=== PATIENT | female | born 1945 | race Caucasian/White ===

== ENCOUNTER 2024-02-29 00:23 | Emergency (ER) | payer MEDICARE, BC, SELFPAY ==
[2024-02-29] VITALS (7 sets, daily range): BP systolic 131–139; BP diastolic 76–83; PULSE 64–132; RESP 18; TEMP 36.6; O2SAT 91–100; BMI 22.6
--- NOTE | 2024-02-29 01:00 | ED_ITS ---
HPI - General Adult General Chief complaint: Arrhythmia/Palpitations Stated complaint: Elevated heartrate Time Seen by Provider: 02/29/24 00:23 Source: patient Mode of arrival: ambulatory Limitations: no limitations History of Present Illness HPI narrative: 78-year-old female presents the emergency department with feeling of rapid heart rate about 90 minutes prior to arrival at 11:00 p.m. while at rest. Last meal 9:00 p.m.. No prior history of arrhythmia but does have a remote history of radiation for breast cancer 20 years ago. Has had an echo within the last couple of years with no significant signs of any major valvular or structural heart disease. Last ejection fraction 67% no prior coronary artery disease, stent placement or bypass surgery. She does follow with cardiology every few years as a result of her prior treatment. She is not having any chest pain or shortness of breath. No prodromal symptoms. No prior history of arrhythmias. She is familiar with discussion of them as her has had a history of cardioversion for what sounds like AFib in the past. No recent illness, fever, medication changes, injury or trauma. She is not anticoagulated. Did not try any interventions other than researching and watchful waiting prior to coming to the ED. no alcohol or drug use tonight. Past medical history notable for the prior breast cancer. She has history of hypertension and hyperlipidemia. Home medications are atorvastatin and hydrochlorothiazide. Allergy to penicillin causing hives. Nonsmoker. ROS is notable for a cardiac symptoms as above only, otherwise denies times 12 systems. Related Data Home Medications ?Medication ?Instructions ?Recorded ?Confirmed alprazolam 0.25 mg tablet 0.25 mg PO DAILY 02/29/24 02/29/24 hydrochlorothiazide 12.5 mg tablet 12.5 mg PO DAILY 02/29/24 02/29/24 rosuvastatin 10 mg tablet 10 mg PO DAILY 02/29/24 02/29/24 Previous Rx's ?Medication ?Instructions ?Recorded metoprolol tartrate 25 mg tablet 12.5 mg (1/2 x 25 mg) PO BID #90 02/29/24 tabs Allergies Allergy/AdvReac Type Severity Reaction Status Date / Time Penicillins Allergy Intermediate Hives Verified 02/29/24 00:28 Exam Const: Vital Signs, click to edit/add: Vital Signs - 24 hr 02/29/24 00:29 Temperature 97.9 F Pulse Rate [Pulse Oximeter] 132 H Respiratory Rate 18 Blood Pressure [[facility] Upper [facility]] 135/82 Pulse Oximetry 97 Oxygen Delivery Me thod Room Air Documenting provider has reviewed patient's vital signs: yes Common normals: no apparent distress and alert General appearance: cooperative and well kempt Other: Excellent historian HENMT: Common normals: normocephalic Head and scalp: normocephalic Face and sinus: normal facial exam Mouth: oral and palatal mucosa normal Eye: Common normals: conjunctivae normal General eye: normal appearance of both eyes Conjunctiva: conjunctiva(e) normal Neck & C-Spine: Common normals: no lymphadenopathy General: normal visual inspection Chest: Common normals: inspection of chest normal Resp: Common normals: normal respiratory effort, no use of accessory muscles and clear to auscultation bilaterally Effort & inspection: able to speak in c omplete sentences Auscultation: clear to auscultation bilaterally Cardio: Common normals: S1 normal heart sound, S2 normal heart sound and no murmurs Heart sounds: S1 normal and S2 normal Other: Tachycardic around 130 but sounded regular. GI: Common normals: Normal to inspection, nondistended, normoactive bowel sounds present, soft to palpation and no hepatosplenomegaly Palpation: soft and no hepatosplenomegaly Back & Pelvis: Common normals: thoracic and lumbar spine normal to inspection Extremity: Common normals: normal to inspection and no pedal edema Neuro: Sensorium/orientation: alert Speech: speech normal Motor exam: no movement abnormalities noted Psych: Appearance: well kempt Attitude: engaged Activity/motor behavior: appropriate eye contact Insight: insight good Judgement: judgment good Skin: Common normals: no rashes or lesions noted General skin exam: no rashes or lesions noted Course Course ED Course: EKG obtained, clearly showing atrial flutter in a 2:1 pattern. No hypotension, hypoxia, signs of chest pain or dyspnea. Differential diagnosis mainly for arrhythmias and various causes of such. No significant clinical suspicion for accompanying coronary artery disease, electrolyte abnormality, heart failure or infectious cause. Patient is able to pull up her most recent echo from her [facility] chart and I reviewed this. EF 67%, no significant signs of any structural or valvular major heart disease. Very reassuring. Counseled patient on diagnosis. Would recommend that we place peripheral IV, obtain some basic labs to look for heart failure, electrolyte abnormalities, dar al function, anemia. I suspect these will be normal. Will start 0.5 L of normal saline, 10 mg of diltiazem, 1 g of magnesium and see if this allows for cardioversion. Last meal was 9:00 p.m., would be a candidate for cardioversion at 3:00 a.m. if initial IV measures are unsuccessful. Counseled patient briefly on this as well. Also discussed that she will likely need a plan for long-term management even if we are successful today and we may need additional input from Cardiology for management today. Reevaluation(s) Time of Reevaluation #1: 02:00 Reevaluation #1: Patient appeared to cardioverted around 1:35. I stopped at 1:45 a.m. to reassess. She is feeling better. We then spent a significant time discussing atrial flutter, stroke risk, long-term management, need to check in with her harness and bag inspector in the daylight hours. Will start metoprolol 12 and half p.o. b.i.d.. Based on her chads score, age over 75 being her only real risk factor, I recommend that we start low-dose aspirin. Her harness and bag inspector may defer to stronger anticoagulation and I would trust their judgment. They have more in- depth knowledge of her cardiac issues then I have access to. Counseled that she may benefit from a fitness tracker that has an arrhythmia detector. She is planning to take to grand children on a camping trip starting tomorrow. I recommended that she use caution while hiking. She is warned that if she starting feel dizzy, lightheaded or short of breath she needs to sit down right away, even if it is in the middle of a trail. She should more less take it easy until she is more use to the medication. We discussed pill in the pocket and how she may take an extra 12.5 mg, up to a total of 25 mg per dose if she has repeat onset of atrial flutter. She is return to the ED if it has not been effective in 2 hours or if at any point if she has worrisome symptoms like chest pain, severe shortness of breath, etc.. She verbalizes understanding and agreement. No further questions. She will contact her harness and bag inspector with the information given specifically in her discharge summary. Vital Signs Vital signs: Initial Vital Signs Temperature 97.9 F 02/29/24 00:29 Temperature Source Temporal Artery Scan 02/29/24 00:29 Pulse Rate 132 H 02/29/24 00:29 Respiratory Rate 18 02/29/24 00:29 Blood Pressure 135/82 02/29/24 00:29 Blood Pressure Mean 99 02/29/24 00:29 Blood Pressure Position Sitting 02/29/24 00:29 Pulse Oximetry 97 02/29/24 00:29 Oxygen Delivery Method Room Air 02/29/24 00:29 Vital Signs Temperature 97.9 F 02/29/24 00:29 Pulse Rate 132 H 02/29/24 00:29 Respiratory Rate 18 02/29/24 00:29 Blood Pressure 135/82 02/29/24 00:29 Pulse Oximetry 97 02/29/24 00:29 Oxygen Delivery Method Room Air 02/29/24 00:29 Temperature 97.9 F 02/29/24 00:29 Pulse Rate 132 H 02/29/24 00:29 Respiratory Rate 18 02/29/24 00:29 Blood Pressure 135/82 02/29/24 00:29 Pulse Oximetry 97 02/29/24 00:29 Oxygen Delivery Method Room Air 02/29/24 00:29 Medications Administered Medications: Generic Name Dose Route Start Last Admin Trade Name Leiq PRN Reason Stop Dose Admin Aspirin 162 mg 02/29/24 01:59 02/29/24 02:07 Aspirin 81 Mg Tab.Chew PO 02/29/24 02:00 162 mg ONCE ONE Administration Diltiazem HCl 10 mg 02/29/24 00:58 02/29/24 01:27 Diltiazem 5 Mg/Ml Inj IVP 02/29/24 00:59 10 mg ONCE ONE Administration Sodium Chloride 500 mls @ 500 mls/hr 02/29/24 00:58 02/29/24 01:24 0.9 % Sodium Chloride 500 Ml IV 02/29/24 01:57 500 mls/hr .Q1H ONE Administration Magnesium Sulfate/Dextrose 1 gm in 100 mls @ 100 mls/hr 02/29/24 00:59 02/29/24 01:27 Magnesium Sulf 1 G/100 Ml-D5w IVPB 02/29/24 01:58 100 mls/hr ONCE ONE Administration Metoprolol Tartrate 12.5 mg 02/29/24 01:59 02/29/24 02:07 Metoprolol Tartrate 25 Mg Tablet PO 02/29/24 02:00 12.5 mg ONCE ONE Administration Medical Decision Making Lab Data Lab results reviewed: Yes I reviewed the patient's lab results Lab results narrative: Very reassuring, as expected Labs: Lab Results 02/29/24 02/29/24 Range/Units 00:48 00:58 WBC 7.64 (4.50-11.00) K/uL RBC 4.48 (4.00-5.20) m/uL Hgb 13.7 (12.0-16.0) gm/dL Hct 41.4 (33.0-51.0) % MCV 92 (80-100) fL MCH 31 (26-34) pg MCHC 33 (32-36) gm/dL RDW Coeff of Aditya 12.6 (11.5-15.5) % Plt Count 284 (140-440) K/uL Neut % (Auto) 43.9 (42.0-72.0) % Lymph % (Auto) 39.7 (20-44) % Falls % (Auto) 9.6 (0.0-11.0) % Eos % (Auto) 5.9 (0.0-7.0) % Baso % (Auto) 0.8 (0.0-3.0) % Neut # (Auto) 3.36 (1.7-7.0) K/uL Lymph # (Auto) 3.03 H (0.90-2.90) K/uL Falls # (Auto) 0.70 (0.00-0.90) K/UL Eos # (Auto) 0.45 (0.00-0.50) K/uL Baso # (Auto) 0.06 (0.00-0.30) K/uL Abs Immat Gran (auto) 0.01 (0.00-0.30) K/uL Imm/Tot Granulo (auto) 0.1 % INR 0.91 (0.91-1.10) Sodium 141 (135-149) mmol/L Potassium 3.6 (3.6-5.1) mmol/L Chloride 108 (96-114) mmol/L Carbon Dioxide 23 (20-32) mmol/L Anion Gap 10 (7-15) mEq/L BUN 24 (7-30) mg/dL Creatinine 0.7 (0.5-1.5) mg/dL Estimated Creat Clear 43.40 Estimated GFR 88 ml/min Glucose 105 (60-115) mg/dL Calcium 10.3 (8.4-10.6) mg/dL Magnesium 2.2 (1.5-2.6) mg/dL NT-Pro-B Natriuret Pep 158 pg/mL POC Troponin I 0.00 L (0.01-0.04) ng/ml ECG Data Attestation: I personally reviewed and interpreted this ECG as follows: Prior ECG tracings: not available for review Interpretation: Atrial flutter with a 2-1 conduction, rate 132. Saw tooth pattern with ST abnormalities difficult to interpret in the setting of atrial flutter. No prior comparison. Repeat EKG at 1:51 a.m. showing normal sinus rhythm with no significant ST or T- wave abnormalities, rate of 66 with normal intervals and axis. Discharge Plan Discharge Clinical Impression: Atrial flutter Patient Disposition: Home w/ Parent or Adult Condition: Improved Instructions: Atrial Flutter (DC) Additional Instructions: As we discussed, you had an episode of atrial flutter, a common arrhythmia which is an electrical abnormality in the heart. This is a common part of aging for women but you likely also had some very minor damage to the structure of your heart from your prior radiation that would not have been detected by echo or any blood tests. The important thing to know that once you have this abnormal heart rhythm, you do have a dramatically higher risk of it happening again. You also have a 6 fooled increased risk of stroke compared to the average person. Most of our treatment will focus on stroke prevention. Because of this, I have the following recommendations for you. Please call your harness and bag inspector in the daylight hours and let him know the following news: You were seen in the emergency department for an episode of atrial fibrillation. You received a single dose of diltiazem and converted within 15 minutes. There were no other abnormalities in your blood work. Your EKG return to normal sinus rhythm with no unusual electrical features after the medication and spontaneous cardioversion. We have started you on metoprolol 12.5 mg twice daily. Because you are over the age of 75, I am also recommending that you start taking an aspirin daily. There is some discrepancy on whether this toe should be 81 mg, 162 mg or a full aspirin. I have elected to start you on 162 mg but your harness and bag inspector may choose a different dose for you or a completely different anticoagulation plan based on his more in-depth knowledge of your conditions. Since her echo is less than 3-month-old, I would not recommend repeating this. I would not recommend a Holter monitor at this time but your harness and bag inspector may want 1. We did discuss fitness monitor such as an Apple watch which may be useful for you in tracking abnormal heart rhythms. We also discussed a pill in the pocket concept. If you have onset of atrial flutter again, you may take an additional dose of your metoprolol, 12.5 mg x1. You may take a total of up to 25 mg at a time if you happen to be almost due for your regular dose anyway. If this has not helped in 2 hours, you should come to the emergency department. He should come to the emergency department sooner if you are feeling significant chest pain, dizziness, severe shortness of breath or other alarming symptoms. Please remember on this upcoming camping trip that if you start to feel dizzy, short of breath or lightheaded because of the new medication, it is important that you sit down in place, even on the trail until the symptoms pass. Drink plenty of water and take frequent breaks until you are more used to the medication. Activity Level: No Restrictions Discharge Diet: Regular Prescriptions: New metoprolol tartrate 25 mg tablet 12.5 mg PO BID Qty: 90 4RF No Action alprazolam 0.25 mg tablet 0.25 mg PO DAILY rosuvastatin 10 mg tablet 10 mg PO DAILY hydrochlorothiazide 12.5 mg tablet 12.5 mg PO DAILY Stand Alone Forms: I-frontdesk Info Instructions
[2024-02-29 01:08] LABS: Basophils Absolute Auto 0.06 K/uL (0.00-0.30); Basophils Percent Auto 0.8 % (0.0-3.0); Eosinophils Absolute Auto 0.45 K/uL (0.00-0.50); Eosinophils Percent Auto 5.9 % (0.0-7.0); Hematocrit 41.4 % (33.0-51.0); Hemoglobin* 13.7 gm/dL (12.0-16.0); Immature Granulocytes Abs Auto 0.01 K/uL (0.00-0.30); Immature Granulocytes Pct Auto 0.1 %; Lymphocytes Absolute Auto 3.03 K/uL (0.90-2.90); Lymphocytes Percent Auto 39.7 % (20-44); Mean Corpuscular HGB Conc 33 gm/dL (32-36); Mean Corpuscular Hemoglobin 31 pg (26-34); Mean Corpuscular Volume 92 fL (80-100); Monocytes Percent Auto 9.6 % (0.0-11.0); Neutrophils Absolute Auto 3.36 K/uL (1.7-7.0); Neutrophils Percent Auto 43.9 % (42.0-72.0); Platelet Count* 284 K/uL (140-440); RDW Coefficient of Variation % 12.6 % (11.5-15.5); Red Blood Count 4.48 m/uL (4.00-5.20); White Blood Count* 7.64 K/uL (4.50-11.00)
[2024-02-29 01:11] LABS: Slide Review Reflex No
[2024-02-29 01:15] LABS: Chloride* 108 mmol/L (96-114)
[2024-02-29 01:16] LABS: Potassium* 3.6 mmol/L (3.6-5.1); Sodium* 141 mmol/L (135-149)
[2024-02-29 01:18] LABS: Anion Gap 10 mEq/L (7-15); Carbon Dioxide* 23 mmol/L (20-32); Creatinine* 0.7 mg/dL (0.5-1.5); Estimated Glomerular Filt Rate 88 ml/min
[2024-02-29 01:19] LABS: Blood Urea Nitrogen* 24 mg/dL (7-30); Calcium* 10.3 mg/dL (8.4-10.6); Glucose* 105 mg/dL (60-115); INR 0.91 (0.91-1.10); Magnesium* 2.2 mg/dL (1.5-2.6); Prothrombin Time 12.8 Seconds
--- OUTSIDE RECORDS SUMMARY | 2024-02-29 01:19 | XMS_ITS | Encounter Summary ---
Author Organization [facility] Address [address] [place] [address] Care Team Providers Care Software Developer Name Role Phone Shreyas bAreu M.D. Primary Care Provider [phone] [phone] Encounter Details Date Type Department Care Team (Late Contact Info) Description 02/08/2017 Historical Ophthalmology [facility] Klever Solano Jr., M.D. [address] [place] [id number] Social History Tobacco Use Types Packs/Day Years Used Date Smoking Tobacco: Never Sex and Gender Information Value Date Recorded Sex Assigned at Female 04/20/2021 3:08 PM CDT Gender Identity Female 01/31/2018 12:32 PM CDT Sexual Orientation Straight 01/31/2018 12 :32 PM CDT documented as of this encounter Progress Notes * Klever Solano M.D. - 02/08/2017 1:47 PM CDT Contact Lens Exam IMPRESSION / REPORT / PLAN #1 Reorder, basilio if possible, the lenses with the OR OU. Please let lab know that position is OK, but on blink lens rotates a small amount and not wetting real well. CD Reports - EYECL Id: [id number] Status: Fnl documented in this encounter Plan of Treatment Upcoming Encounters Date Type Department Care Team (Late Contact Info) Description 04/05/2024 10:20 AM CDT Appointment Department of Laboratory Medicine in [place] [address] [place] [address] Shreyas Abreu M.D. [address] [place] [address] 04/09/2024 9:30 AM CDT Comprehensive Visit Department of Family Medicine, [facility], in [place], [place] [address], [place] [address] Shreyas Abreu M.D. [address] [phone] 04/09/2024 10:45 AM CDT Appointment Department of Radiology in [place], [place] [address] [place] [address] Shreyas Abreu M.D. [address] [phone] documented as of this encounter Visit Diagnoses Not on filedocumented in this encounter Additional Health Concerns Infection Onset Date Last Indicated Resolved Time COVID19 Pending 02/19/2021 02/20/2021 02/20/2021 1 0:03 PM CDT COVID19 02/28/2022 02/28/2022 03/20/2022 4:45 AM CDT documented as of this encounter Care Teams Software Developer Relationship Specialty Start Date End Date Shreyas Abreu M.D. [address] [place] [address] PCP - General 12/16/16 documented as of this encounter
--- OUTSIDE RECORDS SUMMARY | 2024-02-29 01:19 | XMS_ITS | Encounter Summary ---
Author Organization [facility] Address [address] [place] [address] Care Team Providers Care Inspector [employer] Products Name Role Phone Shreyas Abreu M.D. Primary Care Provider [phone] [phone] Encounter Details Date Type Department Care Team (Late Contact Info) Description 12/29/2015 Historical Ophthalmology [facility] Klever Solano Jr., M.D. [address] [place] [phone] Social History Tobacco Use Types Packs/Day Years Used Date Smoking Tobacco: Never Assessed Sex and Gender Information Value Date Recorded Sex Assigned at Female 04/20/2021 3:08 PM CDT Gender Identity Female 01/31/2018 12:32 PM CDT Sexual Orientation Straight 01/31/2018 12 :32 PM CDT documented as of this encounter Progress Notes * Klever Solano M.D. - 12/29/2015 10:38 AM CDT Contact Lens Exam HISTORY OF PRESENT ILLNESS by the end of the day her left lens is foggy IMPRESSION / REPORT / PLAN Fit well, center well, but lots of deposits. Reorder same lenses. CDM Reports - EYECL Id: [id number] Status: Fnl documented in this encounter Plan of Treatment Upcoming Encounters Date Type Department Care Team (Late Contact Info) Description 04/05/2024 10:20 AM CDT Appointment Department of Laboratory Medicine in [place] [address] [place] [address] Shreyas Abreu M.D. [address] [place] [address] 04/09/2024 9:30 AM CDT Comprehensive Visit Department of Family Medicine, [facility], in [place], [place] [address] [address] Shreyas Abreu M.D. [address] [address] 04/09/2024 10:45 AM CDT Appointment Department of Radiology in [place], [place] [address] [address] Shreyas Abreu M.D. [address] [place] [address] documented as of this encounter Visit Diagnoses Not on filedocumented in this encounter Additional Health Concerns Infection Onset Date Last Indicated Resolved Time COVID19 Pending 02/19/2021 02/20/2021 02/20/2021 1 0:03 PM CDT COVID19 02/28/2022 02/28/2022 03/20/2022 4:45 AM CDT documented as of this encounter Care Teams Inspector Canvas Products Relationship Specialty Start Date End Date Shreyas Abreu M.D. [address] [place] [address] PCP - General 12/16/16 documented as of this encounter
--- OUTSIDE RECORDS SUMMARY | 2024-02-29 01:19 | XMS_ITS | Encounter Summary ---
Author Organization [facility] Address [address] [place] [address] Care Team Providers Care Fire Captain Marine Name Role Phone Shreyas Abreu M.D. Primary Care Provider [phone] Reason for Visit * Reason Onset Date Comments Communication 02/14/2024 F/u from appt on 02/13/24 Encounter Details Date Type Department Care Team (Latest Contact Info) Description 02/14/2024 Clinical Communication Department of Ophthalmology in [place], [place] [address] [phone] Klever Solano Jr., M.D. [address] [address] Communication (F/u from appt on 02/13/24) Social History Tobacco Use Types Packs/Day Years Used Date Smoking Tobacco: Never Passive Smoke Exposure: Never Smokeless Tobacco: Never Alcohol Use Standard Drinks/Week Comments Yes 0 (1 standard drink = 0.6 oz pur e alcohol) Rare (1) Humiliation, Afraid, Rape, and Kick questionnair e Answer Date Recorded Fear of Current or Ex-Partner No Emotionally Abused No 01/31/2019 Physically Abused No 01/31/2019 Sexually Abused No 01/31/2019 Social Connection and Isolat ion Panel [NHANES] Answer Date Recorded In a typical week, how many times do you talk on the phone with family, friends, or neighbors? More than three times a week 11/04/2020 How often do you get togethe r with friends or relatives? More than three times a week 11/04/2020 How often do you attend chur ch or christianity services? More than 4 times per year 11/04/2020 Do you belong to any clubs o r organizations such as episcopal groups, unions, fraternal or athletic groups, or school groups? Yes 11/04/2020 How often do you attend meet ings of the clubs or organizations you belong to? More than 4 times per year 11/04/2020 Are you , , di vorced, , never , or living with a partner? 11/04/2020 AUDIT-C Answer Date Recorded Q1: How often do you have a drink containing alc ohol? Monthly or less 11/04/2020 Q2: How many drinks containi ng alcohol do you have on a typical day when you are drinking? 1 or 2 11/04/2020 Q3: How often do you have si x or more drinks on one occasion? Never 11/04/2020 Overall Financial Resource Strain (CARDIA) Answe r Date Recorded How hard is it for you to pa y for the very basics like food, housing, medical care, and heating? Not hard at all 04/03/2023 PHQ-2 Answer Date Recorded PHQ-2 Score 0 04/03/2023 [facility] - Occupational Stress Questionnaire Answer Date Recorded Do you feel stress - tense, restless, nervous, or anxious, or unable to sleep at night because your mind is troubled all the time - these days? Not at all 11/04/2020 Exercise Vital Sign Answer Date Recorde d On average, how many days pe r week do you engage in moderate to strenuous exercise (like a brisk walk)? 5 days 04/03/2023 On average, how many minutes do you engage in exercise at this level? 60 min 04/03/2023 Hunger Vital Sign Answer Date Recorded Within the past 12 months, y ou worried that your food would run out before you got the money to buy more. Never true 04/03/20 23 Within the past 12 months, t he food you bought just didn't last and you didn't have money to get more. Never true 04/03/2023 PRAPARE - Transportation Answer Date Re corded In the past 12 months, has l ack of transportation kept you from medical appointments or from getting medications? No 07/2022 In the past 12 months, has l ack of transportation kept you from meetings, work, or from getting things needed for daily living? No 04/03/2023 Nutrition Answer Date Recorded On average, how many serving s of fruits and vegetables do you eat per day (serving size is equal to 1 cup or approximately the size of a tennis ball)? 3-5 04/03/2023 Dental Answer Date Recorded Dental: Regular Dentist Unknown 11/15/19 Employment Answer Date Recorded Employment status Retired 04/03/2023 Housing Stability Answer Date Recorded What is your living situation today? I have a [facility] place to live 04/03/2023 Education Answer Date Recorded What is the highest level of school you have completed or the highest degree you have received? Associate degree: academic program 11/04/2020 Sex and Gender Information Value Date Recorded Sex Assigned at Female 04/20/2021 3:08 PM CDT Gender Identity Female 01/31/2018 12:32 PM CDT Sexual Orientation Straight 01/31/2018 12 :32 PM CDT documented as of this encounter Plan of Treatment Upcoming Encounters Date Type Department Care Team (Late st Contact Info) Description 04/05/2024 10:20 AM CDT Appointment Department of Laboratory Medicine in [place] [address] [place] [address] Shreyas Abreu M.D. [address], [place] [address] 04/09/2024 9:30 AM CDT Comprehensive Visit Department of Family Medicine, [facility], in [place], [place] [address] [address] Shreyas Abreu M.D. [address], [place] [address] 04/09/2024 10:45 AM CDT Appointment Department of Radiology in [place], [place] [address] [phone] Shreyas Abreu M.D. [address] [facility] [place] [address] documented as of this encounter Visit Diagnoses Not on filedocumented in this encounter Care Teams Fire Captain Marine Relationship Specialty Start Date End Date Shreyas Abreu M.D. [address] [facility] [place] [address] PCP - General 12/16/16 documented as of this encounter
--- OUTSIDE RECORDS SUMMARY | 2024-02-29 01:19 | XMS_ITS | Encounter Summary ---
Author Organization [facility] Address [address] [place] [address] Care Team Providers Care Bellows Assembler Name Role Phone Shreyas Abreu M.D. Primary Care Provider [phone] [phone] Encounter Details Date Type Department Care Team (Late st Contact Info) Description 03/25/2017 Historical Ophthalmology [facility] Klever Solano Jr., M.D. [address] [place] [phone] Social History Tobacco Use Types Packs/Day Years Used Date Smoking Tobacco: Never Sex and Gender Information Value Date Recorded Sex Assigned at Female 04/20/2021 3:08 PM CDT Gender Identity Female 01/31/2018 12:32 PM CDT Sexual Orientation Straight 01/31/2018 12 :32 PM CDT documented as of this encounter Progress Notes * Klever Solano M.D. - 03/25/2017 8:38 AM CDT Contact Lens Exam IMPRESSION / REPORT / PLAN #1 Bitoric contact lens Does not like lack of intermediate. Call lab. Need to tighten OS, lots of rotation. CDM Reports - EYECL Id: [id number] Status: Fnl documented in this encounter Plan of Treatment Upcoming Encounters Date Type Department Care Team (Late Contact Info) Description 04/05/2024 10:20 AM CDT Appointment Department of Laboratory Medicine in [address] [place] [address] Shreyas Abreu M.D. [address], [place] [address] 04/09/2024 9:30 AM CDT Comprehensive Visit Department of Family Medicine, [facility], in [place], [place] [address] [place] [address] Shreyas Abreu M.D. [address] [place] [address] 04/09/2024 10:45 AM CDT Appointment Department of Radiology in [place], [place] [address] [place] [address] Shreyas Abreu M.D. [address] [place] [address] documented as of this encounter Visit Diagnoses Not on filedocumented in this encounter Additional Health Concerns Infection Onset Date Last Indicated Resolved Time COVID19 Pending 02/19/2021 02/20/2021 02/20/2021 1 0:03 PM CDT COVID19 02/28/2022 02/28/2022 03/20/2022 4:45 AM CDT documented as of this encounter Care Teams Bellows Assembler Relationship Specialty Start Date End Date Shreyas Abreu M.D. [address], [place] [address] PCP - General 12/16/16 documented as of this encounter
--- OUTSIDE RECORDS SUMMARY | 2024-02-29 01:19 | XMS_ITS | Encounter Summary ---
Author Organization [facility] Address [address] [place] [address] Care Team Providers Care Insurance Executive Name Role Phone Shreyas Abreu M.D. Primary Care Provider +1 [phone] Reason for Referral * Cardiovascular-Diagnostic (Routine) - Closed Specialty Diagnoses / Procedures Referred By Sarah chau Referred To Contact Diagnoses Regurgitation Aortic Procedures Echo Transthoracic (TTE) Live Ramirez M.D. [address] [place] [address] [facility] Region Referral ID Status Reason Start Date Expiration Date Visits Re quested Visits Authorized [id number] Closed 11/16/2023 11/15/2024 1 1 Reason for Visit * Cardiovascular-Diagnostic (Routine) - Closed Specialty Diagnoses / Procedures Referred By Sarah chau Referred To Contact Diagnoses Regurgitation Aortic Procedures Echo Transthoracic (TTE) Live Ramirez M.D. [address] [place] [address] [facility] Region Referral ID Status Reason Start Date Expiration Date Visits Re quested Visits Authorized [id number] Closed 11/16/2023 11/15/2024 1 1 Encounter Details Date Type Department Care Team (Latest Contact Info) Description 12/21/2023 12:01 PM CDT - 12/21/2023 11:59 PM CDT Hospital Encounter Department of Cardiovascular Diseases in [place], [place] [address] [facility] [place] [phone] Live Ramirez M.D. [address] [facility] [place] [phone] Regurgitation Aortic Discharge Disposition: Home or Self Care Social History Tobacco Use Types Packs/Day Years [...] often do you attend chur ch or buddhist services? More than 4 times per year 11/04/2020 Do you belong to any clubs o r organizations such as spiritism groups, unions, fraternal or athletic groups, or [...] Answer Date Recorded PHQ-2 Score 0 04/03/2023 [employer] [place] of Occupat ional Health - Occupational Stress [...] Date Recorded Dental: Regular Dentist Unknown 11/15/19 24 Employment Answer Date Recorded Employment status Retired 04/03/2023 Housing Stability Answer Date Recorded What is your living situation today? I have a [facility] place to live 04/03/2023 Education Answer Date [...] PM CDT documented as of this encounter Medications at Time of Discharge Medication Sig Dispensed Refills Start Date End Date ALPRAZolam (XANAX) 0.25 mg tabletIndications:Adjust ment Disorder With Anxious Mood Take 1/2 to 1 tab by mouth as needed for flying or occasionally for sleep. 15 tablet 1 04/07/2023 calcium carb-vitamin D3-vit K2 500 mg calcium- 200 unit-90 mcg tablet Take 1 tablet by mouth daily. cholecalciferol (for_VITAMIN D3) 2,000 Unit tablet Take 2 tablets by mouth daily. 12/26/2015 DOCOSAHEXANOIC ACID/EPA (FISH OIL ORAL) Take 1 capsule by mouth daily. GLUCOSAMINE/CHONDROITIN SULF A (GLUCOSAMINE-CHONDROITIN ORAL) Take 1 tablet by mouth daily. hydroCHLOROthiazide (HYDRODIURIL) 12.5 mg tabletIndications:Hypert ension Essential Primary Take 1 tablet (12.5 mg total) by mouth daily. 90 tablet 4 04/07/2023 04/06/2024 multivitamin tablet Take 1 tablet by mouth daily. pantoprazole (PROTONIX) 40 mg EC tabletIndications:Gastro esophageal Reflux Disease Take 1 tablet (40 mg total) by mouth daily as needed for heartburn. 30 tablet 3 04/07/2023 04/06/2024 rosuvastatin (CRESTOR) 10 mg tablet Take 1 tablet (10 mg total) by mouth daily. 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 Apply to perineal region. 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 4 tablet 3 04/07/2023 documented as of this encounter Plan of Treatment Upcoming Encounters Date Type Department Care Team (Late st Contact Info) Description 04/05/2024 10:20 AM CDT Appointment Department of Laboratory Medicine in [address] [place] [phone] Shreyas Abreu M.D. [address] [place] [address] 04/09/2024 9:30 AM CDT Comprehensive Visit Department of Family Medicine, [facility], in [place], [place] [address] [place] [address] Shreyas Abreu M.D. [address] [place] [address] 04/09/2024 10:45 AM CDT Appointment Department of Radiology in [place], [place] [address] [place] [address] Shreyas Abreu M.D. [address] [place] [address] documented as of this encounter Procedures Procedure Name Priority Date/Time Associated Diagnosis Comments (TTE) 2D ECHO DOPPLER COLOR Routine 12/21/2023 12:46 PM CDT Regurgitation Aortic documented in this encounter Results * (TTE) 2D ECHO DOPPLER COLOR (12/21/2023 12:46 PM CDT) Ejection Fraction 67 MC CV EIMS Mid-Ascending Aorta 36 MC CV EIMS LV Mass Index 85 MC CV EIMS LV End-Diastolic Diameter 46 MC CV EIMS LV End-Systolic Diameter 28 MC CV EIMS MV E Velocity 0.4 MC CV EIMS MV A Velocity 0.7 MC CV EIMS MV E/A 0.57 MC CV EIMS MV e' Velocity Medial 0.06 MC CV EIMS MV e' Velocity Lateral 0.08 MC CV EIMS MV E/e' Medial 6.7 MC CV EIMS MV E/e' Lateral 5 MC CV EIMS Left ventricular stroke volume index 49 MC CV EIMS Cardiac Output 4.83 MC CV EIMS Cardiac Index 2.79 MC CV EIMS LV Interventricular Septal Wall Thickness 9 MC CV EIMS LV Posterior Wall Thickness 10 MC CV EIMS LV Relative Wall Thickness 43 MC CV EIMS TAPSE 26 MC CV EIMS Tricuspid Annular S? 0.11 MC CV EIMS TR Vmax 2.74 MC CV EIMS RA Pressure 5 MC CV EIMS RV Systolic Pressure 35 MC CV EIMS AV mean gradient 4 MC CV EIMS Aortic valve area 2.92 MC CV EIMS Aortic Valve Dimensionless Index 0.77 MC CV EIMS LA Volume Index 26 MC CV EIMS Aortic Valve Systolic Peak Velocity 1.4 MC CV EIMS Anatomical Region Laterality Modality Echocardiography 12/21/2023 12:0 3 PM CDT Impressions 12/21/2023 1:54 PM CDT Transthoracic outreach echo interpretation. LEFT VENTRICLE:Normal left ventricular chamber size. Abnormal left ventricular geometry with ??concentric remodeling (increased wall thickness to cavity ratio). Calculated 2-D monoplane volumetric left ventricular ejection fraction 67%. No regional wall motion abnormalities. Grade 1/3 left ventricular diastolic dysfunction, consistent with low to normal left ventricular filling pressure. RIGHT VENTRICLE:Mildly enlarged right ventricular chamber size. Normal right ventricular systolic function. Estimated right ventricular systolic pressure 35 mmHg (right atrial pressure of 5 mmHg). ATRIA:Normal left atrial size. Left atrial volume index 26 ml/m2. Normal right atrial size. CARDIAC VALVES:Trileaflet aortic valve. Thickened aortic valve. Mild aortic valve regurgitation. Thickened mitral valve. Trivial mitral valve regurgitation. Normal pulmonary valve. Trivial pulmonary valve regurgitation. Normal tricuspid valve. Mild tricuspid valve regurgitation. OTHER ECHO FINDINGS:Normal inferior vena cava size with normal inspiratory collapse (>50%). Normal mid ascending aorta diameter of 36 mm. Abdominal aorta incompletely visualized. Normal abdominal aorta Doppler flow pattern. No atrial level shunt by color flow imaging. No intracardiac mass or thrombus, but the left atrial appendage cannot be visualized adequately with transthoracic echo to exclude thrombus in this location. No ??pericardial effusion. For the complete report, see the Order-Level Documents. Narrative 12/21/2023 1:54 PM CDT For the complete report, see the Order-Level Documents. Hemodynamics Heart Rate: 57 BPM Blood Pressure: 131 / 71 mmHg ECG: Sinus rhythm Final Impressions 1. Transthoracic outreach echo interpretation. 2. Mildly enlarged right ventricular chamber size, normal systolic function, estimated right ventricular systolic pressure 35 mmHg (right atrial pressure of 5 mmHg). 3. Trileaflet aortic valve. Mild aortic regurgitation. ??No aortic root dilatation. 4. Normal left ventricular chamber size, no regional wall motion abnormalities, calculated 2-D monoplane volumetric ejection fraction 67%. 5. Abnormal left ventricular geometry with ??concentric remodeling (increased wall thickness to cavity ratio), grade 1/3 diastolic dysfunction, consistent with low to normal filling pressure. 6. No ??pericardial effusion. 7. Normal inferior vena cava size with normal inspiratory collapse (>50%) , suggesting normal right atrial pressure. 8. Compared to the report of 04/01/2021 the following changes have occurred: the right ventricle is mildly increased in size but this may be due to the fact that it was better visualized in the current study. ??Side by side comparison of images performed. Procedure Note Live Ramirez M.D. - 12/21/2023 For the complete report, see the Order-Level Documents. Hemodynamics Heart Rate: 57 BPM Blood Pressure: 131 / 71 mmHg ECG: Sinus rhythm Final Impressions 1. Transthoracic outreach echo interpretation. 2. Mildly enlarged right ventricular chamber size, normal systolicfunction, estimated right ventricular systolic pressure 35 mmHg (rightatrial pressure of 5 mmHg). 3. Trileaflet aortic valve. Mild aortic regurgitation. No aortic rootdilatation. 4. Normal left ventricular chamber size, no regional wall motionabnormalities, calculated 2-D monoplane volumetric ejection buofhsrx27%. 5. Abnormal left ventricular geometry with concentric remodeling(increased wall thickness to cavity ratio), grade 1/3 diastolicdysfunction, consistent with low to normal filling pressure. 6. No pericardial effusion. 7. Normal inferior vena cava size with normal inspiratory collapse (>50%), suggesting normal right atrial pressure. 8. Compared to the report of 04/01/2021 the following changes haveoccurred: the right ventricle is mildly increased in size but this may bedue to the fact that it was better visualized in the current study. Sideby side comparison of images performed. Findings Transthoracic outreach echo interpretation. LEFT VENTRICLE:Normal left ventricular chamber size. Abnormal leftventricular geometry with concentric remodeling (increased wall thicknessto cavity ratio). Calculated 2-D monoplane volumetric left ventricularejection fraction 67%. No regional wall motion abnormalities. Grade 1/3left ventricular diastolic dysfunction, consistent with low to normal leftventricular filling pressure. RIGHT VENTRICLE:Mildly enlarged right ventricular chamber size. Normalright ventricular systolic function. Estimated right ventricular systolicpressure 35 mmHg (right atrial pressure of 5 mmHg). ATRIA:Normal left atrial size. Left atrial volume index 26 ml/m2. Normalright atrial size. CARDIAC VALVES:Trileaflet aortic valve. Thickened aortic valve. Mildaortic valve regurgitation. Thickened mitral valve. Trivial mitral valveregurgitation. Normal pulmonary valve. Trivial pulmonary valveregurgitation. Normal tricuspid valve. Mild tricuspid valveregurgitation. OTHER ECHO FINDINGS:Normal inferior vena cava size with normal inspiratorycollapse (>50%). Normal mid ascending aorta diameter of 36 mm. Abdominalaorta incompletely visualized. Normal abdominal aorta Doppler flowpattern. No atrial level shunt by color flow imaging. No intracardiac massor thrombus, but the left atrial appendage cannot be visualized adequatelywith transthoracic echo to exclude thrombus in this location. Nopericardial effusion. For the complete report, see the Order-Level Documents. Live Ramirez M.D. CV ECHO PROCEDURES documented in this encounter Visit Diagnoses Diagnosis Regurgitation Aortic documented in this encounter Care Teams Insurance Executive Relationship Specialty Start Date End Date Shreyas Abreu M.D. [address] [place] [phone] PCP - General 12/16/16 documented as of this encounter
--- OUTSIDE RECORDS SUMMARY | 2024-02-29 01:19 | XMS_ITS | Encounter Summary ---
Author Organization [facility] Address [address] [place] [address] Care Team Providers Care Mapping Supervisor Name Role Phone Shreyas Abreu M.D. Primary Care Provider [phone] [phone] Reason for Visit * Appointment Request (Routine) - Closed Specialty Diagnoses / Procedures Referred By Sarah t Referred To Contact Ophthalmology Referral ID Status Reason Start Date Expiration Date Visits Re quested Visits Authorized [id number] Closed 02/07/2024 02/06/2025 1 1 Encounter Details Date Type Department Care Team (Latest Contact Info) Description 02/13/2024 1:30 PM CDT Office Visit Department of Ophthalmology in [place], [place] [address] [address] Klever Solano Jr., M.D. [address] [place] [phone] Age Related Nuclear Cataract Bilateral (Primary Dx); Myopia Bilateral; Astigmatism Irregular Bilateral Social History Tobacco Use Types Packs/Day Years [...] often do you attend chur ch or mandaeism services? More than 4 times per year 11/04/2020 Do you belong to any clubs o r organizations such as religion groups, unions, fraternal or athletic groups, or [...] Answer Date Recorded PHQ-2 Score 0 04/03/2023 [facility] of Occupat ional Health - Occupational Stress [...] your living situation today? I have a [facility] place to live 04/03/2023 Education Answer [...] this encounter Progress Notes * Klever Solano Jr., M.D. - 02/13/2024 1:30 PM CDT Seema Marlow was seen today for No chief complaint on file. #1 Age Related Nuclear Cataract Bilateral #2 Myopia Bilateral #3 Astigmatism Irregular Bilateral #1-3 Rx change; order new glasses and contacts. OR in new contact lens on return documented in this encounter Plan of Treatment Upcoming Encounters Date Type Department Care Team (Late st Contact Info) Description 04/05/2024 10:20 AM CDT Appointment Department of Laboratory Medicine in [address] [phone] Shreyas Abreu M.D. [address] [phone] 04/09/2024 9:30 AM CDT Comprehensive Visit Department of Family Medicine, [facility], in [place], [place] [address] [place] [address] Shreyas Abreu M.D. [address], [place] [address] 04/09/2024 10:45 AM CDT Appointment Department of Radiology in [place], [place] [address] [place] [address] Shreyas Abreu M.D. [address], [place] [address] documented as of this encounter Visit Diagnoses Diagnosis Age Related Nuclear Cataract Bilateral- Primary Myopia Bilateral Astigmatism Irregular Bilateral documented in this encounter Care Teams Mapping Supervisor Relationship Specialty Start Date End Date Shreyas Abreu M.D. [address], [place] [address] PCP - General 12/16/16 documented as of this encounter
--- OUTSIDE RECORDS SUMMARY | 2024-02-29 01:19 | XMS_ITS | Encounter Summary ---
Author Organization [facility] Address [address] [place] [address] Care Team Providers Care Bedspread Inspector Name Role Phone Shreyas Abreu M.D. Primary Care Provider [phone] [phone] Encounter Details Date Type Department Care Team (Latest Contact Info) Description 02/06/2024 Clinical Communication Department of Ophthalmology in [place], [place] [address] [address] Klever Solano Jr., M.D. [address] [place] [phone] Social History Tobacco Use Types Packs/Day Years [...] week 11/04/2020 How often do you attend [facility] or mandaen services? More than 4 times per year 11/04/2020 Do you belong to any clubs o r organizations such as methodist groups, unions, fraternal or athletic groups, or [...] Answer Date Recorded PHQ-2 Score 0 04/03/2023 [facility] of Occupat ional [facility] - Occupational Stress Questionnaire Answer Date Recorded [...] your living situation today? I have a [facility] place to live 04/03/2023 Education Answer [...] CDT Appointment Department of Laboratory Medicine in [place] [address] [place] [address] Shreyas Abreu M.D. [address] [place] [phone] 04/09/2024 9:30 AM CDT Comprehensive Visit Department of Family Medicine, [facility], in [place], [place] [address], [place] [address] Shreyas Abreu M.D. [address] [address] 04/09/2024 10:45 AM CDT Appointment Department of Radiology in [place], [place] [address], [place] [address] Shreyas Abreu M.D. [address] [place] [phone] documented as of this encounter Visit Diagnoses Not on filedocumented in this encounter Care Teams Bedspread Inspector Relationship Specialty Start Date End Date Shreyas Abreu M.D. [address] [facility] [phone] PCP - General 12/16/16 documented as of this encounter
--- OUTSIDE RECORDS SUMMARY | 2024-02-29 01:19 | XMS_ITS | Clinical Summary ---
Author Organization [facility] Address [place], [place] [address] Care Team Providers Care Ice Skating Teacher Name Role Phone Shreyas Abreu MD Primary Care Provider + Allergies Active Allergy Reactions Criticality Noted Date Comments Penicillins Hives 07/19/2012 Medications Medication Sig Dispensed Refills Start Date End Date Status aspirin enteric coated (ASPIR-81) 81 mg tabletIndications: myocardial infarction prevention Take 81 mg by mouth once daily with a meal. Indications: MYOCARDIAL INFARCTION PREVENTION Active multivitamin (MVI) tablet Take 1 tablet by mouth once daily. Active omega-3 fatty acids-vitamin E (FISH OIL) 1,000 mg capIndications:for heart health Take 1 capsule by mouth once daily. Indications: for heart health Active CALCIUM CARBONATE/VITAMIN D3 (CALCIUM 500 WITH D ORAL)Indications:c alcium & vitamin supplement Take by mouth once daily. Indications: calcium & vitamin supplement Active ALPRAZolam (XANAX) 0.25 mg tabletIndications: anxiety Take 0.25 mg by mouth one time if needed. PRN for Anxiety, 1 before flying or anxiety event Indications: ANXIETY Active triamcinolone (ARISTOCORT; KENALOG) 0.1 % creamIndications:i tching Apply topically to affected area(s) 3 times daily if needed. Indications: itching Active GLUCOSAMINE/CHONDR RUBIN A SOD (OSTEO BI-FLEX ORAL)Indications:f or joint pain Take 1 tablet by mouth once daily. Indications: for joint pain Active rosuvastatin (CRESTOR) 5 mg tabletIndications: hyperlipidemia Take 5 mg by mouth at bedtime. Indications: hyperlipidemia Active valACYclovir (VALTREX) 1 gram tabletIndications: cold sores Take 2 g by mouth 2 times daily if needed for Other (Specify). Indications: cold sores Active Active Problems No known active problems Immunizations Name Administration Dates Next Due DTaP 05/18/2011 Pneumococcal Poly,23-Valent (Pneumovax) 10/27/19 11 Zoster (Zostavax-ZVL, live) 04/24/2010 Social History Tobacco Use Types Packs/Day Years Used Date Smoking Tobacco: Never Smokeless Tobacco: Never Alcohol Use Standard Drinks/Week Comments Yes 0 (1 standard drink = 0.6 oz pur e alcohol) occasional Sex and Gender Information Value Date Recorded Sex Assigned at Not on file Gender Identity Not on file Sexual Orientation Not on file Obstetrics History Last Filed Vital Signs Vital Sign Reading Time Taken Comments Blood Pressure 134/55 04/27/2017 9:05 AM CDT Pulse 68 04/27/2017 9:05 AM CDT Temperature 36.7 ??C (98 ??F) 04/27/2017 8:21 AM CDT Respiratory Rate 16 04/27/2017 9:05 AM CDT Oxygen Saturation 96% 04/27/2017 9:05 AM CDT Inhaled Oxygen Concentration - - Weight 65.3 kg (144 lb) 04/27/2017 6:16 AM CDT Height 168 cm (5' 6.14) 04/21/2017 9:54 AM CDT Body Mass Index 23.14 04/21/2017 9:54 AM CDT Plan of Treatment Health Maintenance Due Date Last Done Comments Tdap 1956 Depression screening for age 12+ 1957 Hepatitis C screening for age 18-79 1963 Tetanus booster 1965 Zoster (shingles) series for age 50+ (2 of 3) 06/19/20 10 04/24/2010 DEXA/DXA scan for age 65+ 2010 Pneumococcal series for age 65+ (2 of 2 - PCV) 012 10/26/2010 BMI (ht and wt on same day) for age 18+ 04/19/2018 1 COVID-19 vaccine series (1 - 2022- season) Influenza for age 65+ 03/04/2024 Advance Directives * Full Code (Latest Code Status on File) Date Activated Date Inactivated Comments 05/18/2013 11:25 AM 05/18/2013 5:31 PM Care Teams Ice Skating Teacher Relationship Specialty Start Date End Date Shreyas Abreu MD PCP - General Family Practice 07/19/12
--- OUTSIDE RECORDS SUMMARY | 2024-02-29 01:19 | XMS_ITS | Encounter Summary ---
Author Organization [facility] Address [address] [place] [address] Care Team Providers Care Authorization Representative Name Role Phone Shreyas Abreu M.D. Primary Care Provider [phone] [phone] Reason for Referral * Cardiovascular-Diagnostic (Routine) - Authorized Specialty Diagnoses / Procedures Referred By Contac t Referred To Contact Diagnoses Regurgitation Aortic Abnormal Echocardiogram Procedures Echo Transthoracic (TTE) Live Ramirez M.D. [address] [place] [address] [facility] Region Referral ID Status Reason Start Date Expiration Date V isits Requested Visits Authorized [id number] Authorized 12/21/2023 12/20/2024 1 1 Encounter Details Date Type Department Care Team (Latest Contact Info) Description 12/21/2023 Orders Only Department of Cardiovascular Diseases in [place], [place] [address] [place] [address] Live Ramirez M.D. [address] [place] [address] Regurgitation Aortic (Primary Dx); Abnormal Echocardiogram Social History Tobacco Use Types Packs/Day Years [...] 11/04/2020 How often do you attend chur or shinto services? More than 4 times per year 11/04/2020 Do you belong to any clubs o r organizations such as yazidi groups, unions, fraternal or athletic groups, or [...] living situation today? I have a [facility] place to live 04/03/2023 Education Answer [...] CDT Appointment Department of Laboratory Medicine in [place] [address] [place] [phone] Shreyas Abreu M.D. [address] [place] [phone] 04/09/2024 9:30 AM CDT Comprehensive Visit Department of Family Medicine, [facility], in [place], [place] [address] [address] Shreyas Abreu M.D. [address] [phone] 04/09/2024 10:45 AM CDT Appointment Department of Radiology in [place], [place] [address], [place] [address] Shreyas Abreu M.D. [address] [place] [address] Scheduled Orders Name Type Priority Associated Diagnoses Orde r Schedule Echo Transthoracic (TTE) Echocardiography Routine Regurgitation Aortic Abnormal Echocardiogram Expected: 12/20/2024, Expires: 03/22/2025 documented as of this encounter Visit Diagnoses Diagnosis Regurgitation Aortic- Primary Abnormal Echocardiogram documented in this encounter Care Teams Authorization Representative Relationship Specialty Start Date End Date Shreyas Abreu M.D. [address] [place] [address] PCP - General 12/16/16 documented as of this encounter
--- OUTSIDE RECORDS SUMMARY | 2024-02-29 01:19 | XMS_ITS | Referral Summary ---
Author Organization [facility] Address [address] [place] [address] Care Team Providers Care Signal Maintenance Technician Name Role Phone Shreyas Abreu M.D. Primary Care Provider [phone] Source Comments Patient records contain information from all sites at [facility]. For routine questions regarding patient records, call [phone] during business hours, M-F 8:00 AM - 5:00 PM Central Time. Record requests for emergency care only can be directed to [phone] at any time.[facility] Encounters Date Type Department Care Team Description 02/14/2024 Clinical Communication Department of Ophthalmology in [address] [phone] Klever Solano Jr., M.D. Communication (F/u from appt on 02/13/24) 02/13/2024 1:30 PM CDT Office Visit Department of Ophthalmology in [address] [phone] Klever Solano Jr., M.D. Age Related Nuclear Cataract Bilateral (Primary Dx); Myopia Bilateral; Astigmatism Irregular Bilateral 02/06/2024 Clinical Communication Department of Ophthalmology in [address] [phone] Klever Solano Jr., M.D. 12/21/2023 Orders Only Department of Cardiovascular Diseases in [address] [place] [phone] Live Ramirez M.D. Regurgitation Aortic (Primary Dx); Abnormal Echocardiogram 12/21/2023 12:01 PM CDT - 12/21/2023 11:59 PM CDT Hospital Encounter Department of Cardiovascular Diseases in [place] [address] [place] [address] Live Ramirez M.D. Regurgitation Aortic Discharge Disposition: Home or Self Care from Last 3 Months Allergies Active Allergy Reactions Criticality Noted Date Comments Penicillins Hives (Reselect Reaction),Other (see comments) High 04/24/2010 Varicella-Zoster [id number] (Pf) Other (see comments) High 03/02/2021 Body aches Medications Medication Sig Dispensed Refills Start Date End Date Status calcium carb-vitamin D3-vit K2 500 mg calcium- 200 unit-90 mcg tablet Take 1 tablet by mouth daily. Active cholecalciferol (for_VITAMIN D3) 2,000 Unit tablet Take 2 tablets by mouth daily. 12/26/2015 Active GLUCOSAMINE/CHONDROITI N SULF A (GLUCOSAMINE-CHONDROIT IN ORAL) Take 1 tablet by mouth daily. Active multivitamin tablet Take 1 tablet by mouth daily. Active DOCOSAHEXANOIC ACID/EPA (FISH OIL ORAL) Take 1 capsule by mouth daily. Active ALPRAZolam (XANAX) 0.25 mg tabletIndications:Adju stment Disorder With Anxious Mood Take 1/2 to 1 tab by mouth as needed for flying or occasionally for sleep. 15 tablet 1 04/07/2023 Active hydroCHLOROthiazide (HYDRODIURIL) 12.5 mg tabletIndications:Hype rtension Essential Primary Take 1 tablet (12.5 mg total) by mouth daily. 90 tablet 4 04/07/2023 4 Active pantoprazole (PROTONIX) 40 mg EC tabletIndications:Justine roesophageal Reflux Disease Take 1 tablet (40 mg total) by mouth daily as needed for heartburn. 30 tablet 3 04/07/2023 4 Active rosuvastatin (CRESTOR) 10 mg tablet Take 1 tablet (10 mg total) by mouth daily. 90 tablet 4 04/07/2023 4 Active triamcinolone (KENALOG) 0.1 % creamIndications:Liche n Simplex Chronicus Apply topically 3 (three) times a day as needed for irritation. Apply to perineal region. 15 g 3 04/07/2023 Active valACYclovir (VALTREX) 1000 mg tabletIndications:Herp es Simplex Gingivostomatitis 2 tabs by mouth every 12 hrs x 2 doses as needed for cold sores. 4 tablet 3 04/07/2023 Active Active Problems Problem Noted Date Diagnosed Date High Risk Medication 07/11/2022 Overview (07/11/2022): Diuretic (hydrochlorothiazide): need BMP annually. PreDiabetes 07/11/2022 Overview (07/11/2022): Mildly elevated HgbA1c. Work on decreasing this by getting 10 minutes of brisk walking or other exercise after each meal to bring down postprandial sugars. Avoid fruits at breakfast. Get protein at each meal. Decrease sugars and starches. Hypertension Essential Primary 04/05/2022 Overview (07/11/2022): Well controlled on hydrochlorothiazide 12.5mg daily. Check BMP annually due to HTN and high risk med (diuretic). Personal History Of Infectio us And Parasitic Disease (COVID-19) 03/01/2022 Overview (07/11/2022): She in general is doing better and her symptoms have resolved other than she still does not have her taste and smell back to normal. Panic Disorder Episodic Paroxysmal Anxiety 09/28 Overview (07/11/2022): Well controlled with as-needed alprazolam for flying or rarely for sleep. 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 Dermatochalasis Left Upper Eyelid 11/05/2020 Overview (11/05/2020): Added automatically from request for surgery [id number] Dermatochalasis Right Upper Eyelid 11/05/2020 Overview (11/05/2020): Added automatically from request for surgery [id number] Osteopenia 04/20/2018 Overview (04/20/2018): Borderline normal-osteopenia DEXA 2017 Regurgitation Aortic 04/04/2018 Overview (04/01/2021): 04/03/2018 Echo: mildly thickened aortic valve with mild-mod aortic regurg; follow up echo recommended 2020. If stable, can go to echo recheck every 5 years, but if progression is noted, then she should return for follow up with cardiology. 03/2021: Echo shows decreased aortic regurgitation. Recheck in 5 years, 2025. Hyperlipidemia 02/01/2018 Overview (07/11/2022): Well controlled on rosuvastatin 10mg daily. Recheck lipids annually. Gastroesophageal Reflux Disease 02/01/2018 Overview (07/11/2022): Intermittent, for which she uses over the counter omeprazole as needed. Goiter Multinodular Nontoxic 02/01/2018 Overview (03/02/2021): Multinodular goiter, non-toxic with normal thyroid function. Left thyroid nodule, followed by endocrinology with benign biopsy in the past. 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 Resolved Problems Problem Noted Date Diagnosed Date Resolved Date Ptosis Eyelid Left 11/05/2020 2 Adjustment Disorder With Anxious Mood 02/02/2019 02/21/2020 Radiation Therapy Personal History 03/23/2017 02/21/2020 Overview (03/29/2018): left chest x 6 wks 2001 for breast CA Arthralgia 12/24/2015 02/21/2020 Herpes Simplex Gingivostomatitis 08/11/2012 03/02/2021 Family History Cardiovascular Disease 11/17/2007 02/21/2020 Malignant Neoplasm Of Unspec ified Site Of Laterality Unknown Female Breast 08/17/2001 018 Immunizations Name Administration Dates Next Due DTaP, Unspecified 09/28/2021 HZV (ZOSTAVAX) 04/24/2010 HepA Adult 04/10/2012,05/28/2011 Influenza Split 05/03/2006 Influenza TIV (IM) 04/11/2019 Influenza high dose QV(65 ye ars or older) (PF) 04/20/2022,04/16/2021,04/01/2020 Influenza, Seasonal, Injectable 04/27/2007 Influenza, Unspecified 03/21/2013,2011,04/17/2010,2008 PCV13 12/02/2014 PPSV23 10/26/2010 RZV (SHINGRIX) 02/02/2019 SARS-COV-2 (COVID-19) - PFIZ ER (Discontinued)(12 years or older) 09/08/2020,08/18/2020 Td (Adult), adsorbed 10/27/2010 Td Preservative Free (TENIVA C, DECAVAC) 12/01/2000 Tdap 05/18/2011 influenza high dose (65 year s or older) (PF) 04/05/2018 Social History Tobacco Use Types Packs/Day Years Used Date Smoking Tobacco: Never Passive Smoke Exposure: Never Smokeless Tobacco: Never Tobacco Cessation:Counseling Given: Not Answered Alcohol Use Standard Drinks/Week Comments Yes 0 [...] often do you attend chur ch or yazidi services? More than 4 times per year 11/04/2020 Do you belong to any clubs o r organizations such as gnosticism groups, unions, fraternal or athletic groups, or [...] Answer Date Recorded PHQ-2 Score 0 04/03/2023 [facility] - Occupational [...] your living situation today? I have a [place] place to live 04/03/2023 Education Answer Date Recorded What is the highest level of school you have completed or the highest degree you have received? Associate degree: academic program 11/04/2020 Sex and Gender Information Value Date Recorded Sex Assigned at Female 04/20/2021 3:08 PM CDT Gender Identity Female 01/31/2018 12:32 PM CDT Sexual Orientation Straight 01/31/2018 12 :32 PM CDT Last Filed Vital Signs Vital Sign Reading Time Taken Comments Blood Pressure 144/74 11/16/2023 10:45 AM CDT Pulse 61 11/16/2023 10:45 AM CDT Temperature 36 ??C (96.8 ??F) 04/07/2023 9:56 AM CDT Respiratory Rate 18 03/28/2023 9:25 AM CDT Oxygen Saturation 98% 11/16/2023 10: 39 AM CDT room air Inhaled Oxygen Concentration - - Weight 64.8 kg (142 lb 13.7 oz) 024 10:39 AM CDT Height 166.8 cm (5' 5.67) 04/07/2023 9:56 AM CD T Body Mass Index 23.29 04/07/2023 9:56 AM CDT Plan of Treatment Upcoming Encounters Date Type Department Care Team (Late st Contact Info) Description 04/05/2024 10:20 AM CDT Appointment Department of Laboratory Medicine in [address] [phone] Shreyas Abreu M.D. [address] [place] [address] 04/09/2024 9:30 AM CDT Comprehensive Visit Department of Family Medicine, [facility], in [place], [place] [address] [place] [address] Shreyas Abreu M.D. [address] [place] [address] 04/09/2024 10:45 AM CDT Appointment Department of Radiology in [place], [place] [address] [place] [address] Shreyas Abreu M.D. [address] [place] [address] Procedures Procedure Name Priority Date/Time Associated Diagnosis Comments (TTE) 2D ECHO DOPPLER COLOR Routine 12/21/2023 12:46 PM CDT Regurgitation Aortic BASIC METABOLIC PANEL, S/P Routine 11/15/2023 10:06 AM CDT Regurgitation Aortic BI BREAST SCREENING BILATERAL WITH TOMOSYNTHESIS RAD - Routine (most inpatients and all outpatients) 04/07/2023 9:37 AM CDT Screening Mammogram Breast Cancer LIPID PANEL, S Routine 04/04/2023 9:43 AM CDT Hyperlipidemia COLOGUARD Routine 03/10/2021 1:00 PM CDT Screening Colon Cancer Average Risk HCV AB SCRN W/REFLEX TO HCV PCR, S Routine 12/24/2015 1:46 PM CDT from Last 3 Months or Most Recently Relevant to Health Maintenance Results * (TTE) 2D ECHO DOPPLER COLOR [...] wall motionabnormalities, calculated 2-D monoplane volumetric ejection [id number]%. 5. Abnormal left ventricular geometry with concentric [...] Documents. Live Ramirez M.D. CV ECHO PROCEDURES * (ABNORMAL) Basic Metabolic Panel (11/15/2023 10:06 AM CDT) Potassium, P 4.9 3.6 - 5.2 mmol/L 11/15/2023 2:20 PM CDT OWAT Sodium, P 141 135 - 145 mmol/L 11/15/2023 2:20 PM CDT OWAT Chloride, P 105 98 - 107 mmol/L 11/15/2023 2:20 PM CDT OWAT Bicarbonate, P 27 22 - 29 mmol/L 11/15/2023 2:20 PM CDT OW[facility] Anion Gap, P 9 7 - 15 11/15/2023 2:20 PM CDT OW[facility] BUN (Blood Urea Nitrogen), P 22(H) 6 - 21 mg/dL 11/15/2023 2:20 PM CDT OWAT Creatinine 0.86 0.59 - 1.04 mg/dL 11/15/2023 2:20 PM CDT OWAT Estimated GFR (eGFR) 69 >=60 mL/min/BSA 11/15/2023 2:20 PM CDT OWAT Comment: Estimated GFR calculated using the 2020 CKD_EPI creatinine equation. Calcium, Total, P 10.2 8.8 - 10.2 mg/dL 11/15/2023 2:20 PM CDT OWAT Glucose, P 95 70 - 140 mg/dL 11/15/2023 2:20 PM CDT OWAT Blood (Blood, Venous) 11/15/2023 10:06 AM CDT 11/15/2023 1:18 PM CDT Jorge Dolan M.D. LAB BLOOD ADD-O N [facility] [address] [place] [address], [facility] OWAT [facility] in [place] [address] [place] [address] * BI Breast Screening Bilateral with Tomosynthesis (04/07/2023 9:37 AM CDT) Anatomical Region Laterality Modality Breast, Breast Imaging RST L OS, Breast Imaging ARZ LOS, Breast Imaging FLA LOS Bilateral Mammography 04/07/2023 10:0 8 AM CDT Impressions 04/07/2023 10:10 AM CDT Benign. RECOMMENDATION: ??Annual Screening Mammogram ASSESSMENT: ??BI-RADS: 2: Benign. Narrative 04/07/2023 10:10 AM CDT EXAM: ??BI BREAST SCREENING BILATERAL WITH TOMOSYNTHESIS Current study was evaluated with a Computer Aided Detection (CAD) system. INDICATION: ??Screening mammogram. COMPARISON: ??Prior exam(s) were available and reviewed for comparison. DENSITY: ??b. There are scattered areas of fibroglandular density. FINDINGS: ??No mammographic findings of malignancy. Stable therapy changes left breast. Procedure Note Grayson Hancock M.D. - 04/07/2023 EXAM: BI BREAST SCREENING BILATERAL WITH TOMOSYNTHESIS Current study was evaluated with a Computer Aided Detection (CAD) system. INDICATION: Screening mammogram. COMPARISON: Prior exam(s) were available and reviewed for comparison. DENSITY: b. There are scattered areas of fibroglandular density. FINDINGS: No mammographic findings of malignancy. Stable therapy changesleft breast. IMPRESSION: Benign. RECOMMENDATION: Annual Screening Mammogram ASSESSMENT: BI-RADS: 2: Benign. Shreyas Abreu M.D. IMG BI PROCEDURES * Lipid Panel (04/04/2023 9:43 AM CDT) Triglycerides 77 mg/dL 04/04/2023 10:14 AM CDT OWAT Comment: ----REFERENCE VALUE---- Normal: <150 mg/dL Borderline High: 150-199 mg/dL High: 200-499 mg/dL Very High: > or =500 mg/dL Cholesterol, Total 156 mg/dL 2022 10:14 AM CDT OWAT Comment: ----REFERENCE VALUE---- Desirable: < 200 mg/dL Borderline High: 200 - 239 mg/dL High: > or = 240 mg/dL Cholesterol, LDL, Calculated 81 mg/dL 04/04/2023 10:14 AM CDT OWAT Comment: ----REFERENCE VALUE---- Desirable: <100 mg/dL Above Desirable: 100-129 mg/dL Borderline High: 130-159 mg/dL High: 160-189 mg/dL Very High: >=190 mg/dL ----ADDITIONAL INFORMATION---- LDL cholesterol calculated using the Myers/NIH equation. Cholesterol, HDL 60 >=50 mg/dL 04/04/20 10:14 AM CDT OWAT Cholesterol, Non-HDL, Calculated 96 mg/dL 04/04/2023 10:14 AM CDT OWAT Comment: ----REFERENCE VALUE---- Desirable: <130 mg/dL Above Desirable: 130-159 mg/dL Borderline High: 160-189 mg/dL High: 190-219 mg/dL Very High: > or =220 mg/dL Fasting (8 HR or more) Yes 04/04/2023 9:43 AM CDT [facility] Blood (Blood, Venous) 04/04/2023 9:43 AM CDT 04/04/2023 9:43 AM CDT Shreyas Abreu M.D. LAB BLOOD ADD-ON [facility] [address] [place] [address], [facility] OWAT [facility] in [place] [address] [place] [address] * Cologuard-Sent Out Lab (03/10/2021 1:00 PM CDT) Result Negative Negative 03/14/2021 9:51 AM CDT EXLI Comment: NEGATIVE TEST RESULT. A negative Cologuard result indicates a low likelihood that a colorectal cancer (CRC) or advanced adenoma (adenomatous polyps with more advanced pre-malignant features) ??is present. The chance that a person with a negative Cologuard test has a colorectal cancer is less than 1 in 1500 (negative predictive value >99.9%) or has an ??advanced adenoma is less than ??5.3% (negative predictive value 94.7%). These data are based on a prospective cross-sectional study of 10,000 individuals at average risk for colorectal cancer who were screened with both Cologuard and colonoscopy. (Ron Ramos. et al, N Engl J Med 2014;370(14):7123-4252) The normal value (reference range) for this assay is negative. COLOGUARD RE-SCREENING RECOMMENDATION: Periodic colorectal cancer screening is an important part of preventive healthcare for asymptomatic individuals at average risk for colorectal cancer. ??Following a negative Cologuard result, the [place] Cancer Society and U.S. Multi-Society Task Force screening guidelines recommend a Cologuard re-screening interval of 3 years. References: [place] [employer] Society Guideline for Colorectal Cancer Screening: https://www.cancer.org/cancer/denvi-esexge-tbxvoh/detection- diagnosis-staging/acs-recommendations.html.; Giacomo MCMAHON, Cuca HAGANCarter, Colorectal Cancer Screening: Recommendations for Physicians and Patients from the U.S. Multi-Society Task Force on Colorectal Cancer Screening , Am J Gastroenterology 2017; 112:1587-1697. TEST DESCRIPTION: Composite algorithmic analysis of stool DNA-biomarkers with hemoglobin immunoassay. ?? Quantitative values of individual biomarkers are not reportable and are not associated with individual biomarker result reference ranges. Cologuard is intended for colorectal cancer screening of adults of either sex, 45 years or older, who are at average-risk for colorectal cancer (CRC). Cologuard has been approved for use by the U.S. FDA. The performance of Cologuard was established in a cross sectional study of average-risk adults aged 50-84. Cologuard performance in patients ages 45 to 49 years was estimated by sub-group analysis of near-age groups. Colonoscopies performed for a positive result may find as the most clinically significant lesion: colorectal cancer [4.0%], advanced adenoma (including sessile serrated polyps greater than or equal to 1cm diameter) [20%] or non- advanced adenoma [31%]; or no colorectal neoplasia [45%]. These estimates are derived from a prospective cross-sectional screening study of 10,000 individuals at average risk for colorectal cancer who were screened with both Cologuard and colonoscopy. (Ron Newell et al, N Engl J Med 2014;370(14):5618-4101.) Cologuard may produce a false negative or false positive result (no colorectal cancer or precancerous polyp present at colonoscopy follow up). A negative Cologuard test result does not guarantee the absence of CRC or advanced adenoma (pre-cancer). The current Cologuard screening interval is every 3 years. ([place] [employer] Society and U.S. Multi-Society Task Force). Cologuard performance data in a 10,000 patient pivotal study using colonoscopy as the reference method can be accessed at the following location: www.A.P Avanashiappa Silk/results. Additional description of the Cologuard test process, warnings and precautions can be found at www.MedialiveogYouAre.TVrd.com. Stool (Stool) 03/10/2021 1:0 0 PM CDT 03/11/2021 1:15 PM CDT Shreyas Abreu M.D. LAB BODY FLUIDS A ND STOOLS ORDERABLES [employer] [address] [place] [address] EXLI [employer] [address] [facility], [address] [place] [address] * HCV Ab w/Reflex to HCV PCR, S (medicare) (12/24/2015 1:46 PM CDT) HXHCV Ab [facility] Negative Negative POWERCHART Comment: Fpnjle-ak-gwdkcs ratio is <1.00. Test Performed by: [facility] [place] [address] Tumbler Machine Operator Helper: Man Ferrell II, M.D., Ph.D. Blood 12/24/2015 1:46 PM CDT Shreyas Abreu M.D. LAB MICROBIOLOGY - BLOOD ORDERABLES POWERCHART from Last 3 Months or Most Recently Relevant to Health Maintenance Care Teams Signal Maintenance Technician Relationship Specialty Start Date End Date Shreyas Abreu M.D. [address] [phone] PCP - General 12/16/16
--- OUTSIDE RECORDS SUMMARY | 2024-02-29 01:19 | XMS_ITS | Encounter Summary ---
Author Organization [facility] Address [address] [place] [address] Care Team Providers Care Register Repairer Name Role Phone Shreyas Abreu M.D. Primary Care Provider [phone] Encounter Details Date Type Department Care Team (Late st Contact Info) Description 12/29/2015 Historical Ophthalmology [facility] Klever Solano Jr., M.D. [address] [place] [phone] Social History Tobacco Use Types Packs/Day Years Used Date Smoking Tobacco: Never Assessed Sex and Gender Information Value Date Recorded Sex Assigned at Female 04/20/2021 3:08 PM CDT Gender Identity Female 01/31/2018 12:32 PM CDT Sexual Orientation Straight 01/31/2018 12 :32 PM CDT documented as of this encounter Progress Notes * Klever Solano M.D. - 12/29/2015 10:13 AM CDT Eye General CHIEF COMPLAINT CE IMPRESSION / REPORT / PLAN #1 Mild NSC both eyes RTO 1 year New CL DIAGNOSIS #1 Mild NSC both eyes CDM Reports - EYEGEN Id: [id number] Status: Fnl documented in this encounter Plan of Treatment Upcoming Encounters Date Type Department Care Team (Late st Contact Info) Description 04/05/2024 10:20 AM CDT Appointment Department of Laboratory Medicine in [address] [phone] Shreyas Abreu M.D. [address] [phone] 04/09/2024 9:30 AM CDT Comprehensive Visit Department of Family Medicine, [facility], in [place], [place] [address], [place] [address] Shreyas Abreu M.D. [address] [phone] 04/09/2024 10:45 AM CDT Appointment Department of Radiology in [place], [place] [address] [place] [phone] Shreyas Abreu M.D. [address] [phone] documented as of this encounter Visit Diagnoses Not on filedocumented in this encounter Additional Health Concerns Infection Onset Date Last Indicated Resolved Time COVID19 Pending 02/19/2021 02/20/2021 02/20/2021 1 0:03 PM CDT COVID19 02/28/2022 02/28/2022 03/20/2022 4:45 AM CDT documented as of this encounter Care Teams Register Repairer Relationship Specialty Start Date End Date Shreyas Abreu M.D. [address] [place] [address] PCP - General 12/16/16 documented as of this encounter
--- OUTSIDE RECORDS SUMMARY | 2024-02-29 01:19 | XMS_ITS | Encounter Summary ---
Author Organization [facility] Address [address] [place] [address] Care Team Providers Care Board Runner Name Role Phone Shreyas Abreu M.D. Primary Care Provider [phone] Encounter Details Date Type Department Care Team (Late st Contact Info) Description 01/05/2017 Historical Ophthalmology [facility] Klever Solano Jr., M.D. [address] [place] [phone] Social History Tobacco Use Types Packs/Day Years Used Date Smoking Tobacco: Never Sex and Gender Information Value Date Recorded Sex Assigned at Female 04/20/2021 3:08 PM CDT Gender Identity Female 01/31/2018 12:32 PM CDT Sexual Orientation Straight 01/31/2018 12 :32 PM CDT documented as of this encounter Progress Notes * Klever Solano M.D. - 01/05/2017 3:33 PM CDT Eye General CHIEF COMPLAINT CE & CL Evaluation HISTORY OF PRESENT ILLNESS Here for an annual check up. No concerns. Wants to have a refraction and may get a new pair of glasses as is tired of the readers. IMPRESSION / REPORT / PLAN #1 Mild NSC both eyes Doesn't glare yet COntinue to watch New glasses if desired. RTO 1 year New CL; consider RGP bifocal torics. Will discuss with Sheela. DIAGNOSIS #1 Mild NSC both eyes CDM Reports - EYEGEN Id: [id number] Status: Fnl documented in this encounter Plan of Treatment Upcoming Encounters Date Type Department Care Team (Late st Contact Info) Description 04/05/2024 10:20 AM CDT Appointment Department of Laboratory Medicine in [place], [place] [address] [facility] [place] [address] Shreyas Abreu M.D. [address] [place] [address] 04/09/2024 9:30 AM CDT Comprehensive Visit Department of Family Medicine, [facility], in [place], [place] [address] [place] [address] Shreyas Abreu M.D. [address] [address] 04/09/2024 10:45 AM CDT Appointment Department of Radiology in [place], [place] [address] [place] [address] Shreyas Abreu M.D. [address] [place] [address] documented as of this encounter Visit Diagnoses Not on filedocumented in this encounter Additional Health Concerns Infection Onset Date Last Indicated Resolved Time COVID19 Pending 02/19/2021 02/20/2021 02/20/2021 1 0:03 PM CDT COVID19 02/28/2022 02/28/2022 03/20/2022 4:45 AM CDT documented as of this encounter Care Teams Board Runner Relationship Specialty Start Date End Date Shreyas Abreu M.D. [address] [place] [address] PCP - General 12/16/16 documented as of this encounter
--- OUTSIDE RECORDS SUMMARY | 2024-02-29 01:19 | XMS_ITS ---
Author Organization [facility] Address [address] [place] [address] Care Team Providers Care Locomotive Inspector Name Role Phone Unavailable Unavailable Unavailable Surgery Details Not on file Complications Check Surgery Details section. Procedure Estimated Blood Loss Check Surgery Details section. Procedure Findings Check Surgery Details section. Procedure Specimens Taken Check Surgery Details section.
--- OUTSIDE RECORDS SUMMARY | 2024-02-29 01:19 | XMS_ITS | Encounter Summary ---
Author Organization [facility] Address [address] [place] [address] Care Team Providers Care Non Cdl Driver Name Role Phone Shreyas Abreu M.D. Primary Care Provider [phone] Encounter Details Date Type Department Care Team (Late Contact Info) Description 01/05/2017 Historical Ophthalmology [facility] Klever Solano Jr., M.D. [address] [place] [phone] Social History Tobacco Use Types Packs/Day Years Used Date Smoking Tobacco: Never Sex and Gender Information Value Date Recorded Sex Assigned at Female 04/20/2021 3:08 PM CDT Gender Identity Female 01/31/2018 12:32 PM CDT Sexual Orientation Straight 01/31/2018 12 :32 PM CDT documented as of this encounter Progress Notes * Klever Solano M.D. - 01/05/2017 4:21 PM CDT Contact Lens Exam HISTORY OF PRESENT ILLNESS New power on contacts working well. Did not wear the contacts today in order to get better reading on glasses. Contacts inserted at 3:57 pm. IMPRESSION / REPORT / PLAN OK to continue CL CDM Reports - EYECL Id: [id number] Status: Fnl documented in this encounter Plan of Treatment Upcoming Encounters Date Type Department Care Team (Late Contact Info) Description 04/05/2024 10:20 AM CDT Appointment Department of Laboratory Medicine in [place], [place] [address] [place] [address] Shreyas Abreu M.D. [address] [address] 04/09/2024 9:30 AM CDT Comprehensive Visit Department of Family Medicine, [facility], in [place], [place] [address] [address] Shreyas Abreu M.D. [address] [phone] 04/09/2024 10:45 AM CDT Appointment Department of Radiology in [place], [place] [address] [address] Shreyas Abreu M.D. [address] [phone] documented as of this encounter Visit Diagnoses Not on filedocumented in this encounter Additional Health Concerns Infection Onset Date Last Indicated Resolved Time COVID19 Pending 02/19/2021 02/20/2021 02/20/2021 1 0:03 PM CDT COVID19 02/28/2022 02/28/2022 03/20/2022 4:45 AM CDT documented as of this encounter Care Teams Non Cdl Driver Relationship Specialty Start Date End Date Shreyas Abreu M.D. [address] [phone] PCP - General 12/16/16 documented as of this encounter
--- OUTSIDE RECORDS SUMMARY | 2024-02-29 01:19 | XMS_ITS | Clinical Summary ---
Author Organization [facility] Address [address] [place] [address] Care Team Providers Care Channel Sales Manager Name Role Phone Shreyas Abreu M.D. Primary Care Provider [phone] Source Comments Patient records contain information from all sites at [facility]. For routine questions regarding patient records, call [phone] during business hours, M-F 8:00 AM - 5:00 PM Central Time. Record requests for emergency care only can be directed to [phone] at any time.[facility] Allergies Active Allergy Reactions Criticality Noted Date [...] (11/05/2020): Added automatically from request for surgery [id number] Dermatochalasis Right Upper Eyelid 11/05/2020 Overview (11/05/2020): Added automatically from request for surgery [id number] Osteopenia 04/20/2018 Overview (04/20/2018): Borderline normal-osteopenia DEXA [...] Of Laterality Unknown Female Breast 08/17/2001 018 Encounters Date Type Department Care Team Description 02/14/2024 Clinical Communication Department of Ophthalmology in [address] [address] Klever Solano Jr., M.D. Communication (F/u from appt on 02/13/24) 02/13/2024 1:30 PM CDT Office Visit Department of Ophthalmology in [address] [address] Klever Solano Jr., M.D. Age Related Nuclear Cataract Bilateral (Primary Dx); Myopia Bilateral; Astigmatism Irregular Bilateral 02/06/2024 Clinical Communication Department of Ophthalmology in [address] [address] Klever Solano Jr., M.D. 12/21/2023 12:01 PM CDT - 12/21/2023 11:59 PM CDT Hospital Encounter Department of Cardiovascular Diseases in [address] [phone] Live Ramirez M.D. Regurgitation Aortic Discharge Disposition: Home or Self Care 12/21/2023 Orders Only Department of Cardiovascular Diseases in [address] [address] Live Ramirez M.D. Regurgitation Aortic (Primary Dx); Abnormal Echocardiogram from Last 3 Months Immunizations Name Administration Dates Next Due DTaP, [...] (65 year s or older) (PF) 04/05/2018 Family History Medical History Relation Name Comments Aneurysm Aunt Colon polyps Brother Tone Adair Heart attack Brother Tone Adair CABG, 4 dif ferent times Hypertension Brother Tone Adair Macular degeneration Brother Tone Adair Ulcerative colitis Brother Tone Adair AA - Aortic aneurysm Father Rodrigo Adair A AA; non smoker Coronary artery disease Father Rodrigo chau Dementia Mother Tori Adair Hypertension Mother Tori Adair Hypertension Sister Leslie Watkins Aneurysm Uncle AAA; Non smoker , occurred later than age 75 Relation Name Status Comments Aunt Brother Tone Adair Father Rodrigo Adair Mother Tori Adair (Age 94) Sister Leslie Watkins Uncle Social History Tobacco Use Types Packs/Day Years [...] How often do you attend chur or latter-day services? More than 4 times per year 11/04/2020 Do you belong to any clubs o r organizations such as amish groups, unions, fraternal or athletic groups, or [...] Answer Date Recorded PHQ-2 Score 0 04/03/2023 [facility] - Occupational Stress Questionnaire Answer Date [...] your living situation today? I have a [facility] place to live 04/03/2023 Education Answer [...] CDT Appointment Department of Laboratory Medicine in [place], [place] [address] [place] [address] Shreyas Abreu M.D. [address] [place] [phone] 04/09/2024 9:30 AM CDT Comprehensive Visit Department of Family Medicine, [facility], in [place], [place] [address] [address] Shreyas Abreu M.D. [address] [place] [address] 04/09/2024 10:45 AM CDT Appointment Department of Radiology in [place], [place] [address] [place] [address] Shreyas Abreu M.D. [address] [place] [address] Health Maintenance Due Date Last Done Comments Visit: Medicare Annual Wellness 1945 Zoster Vaccines (3 of 3) 03/30/2019 02/02/2019, 04/04 COVID-19 Vaccine (2022-2 4 season) 2023 09/08/2020, 08/18/2020 Depression Screening (Annual PHQ-2) 07/04/2023 Fall Risk Screen (Annual) 07/04/2023 Office Visit for Blood Press ure Check / Re-check 02/16/2024 11/16/2023 Influenza Vaccine (#1) 2024 , 04/20/2022, 04/16/2021, Additional history exists Lipid (Cholesterol) Screening 04/04/2024, 04/05/2022, 03/02/2021, Additional history exists Visit: Chronic Disease, age 18+ 04/07/2024 , 04/05/2022 Creatinine Level (Kidney Fun ction Test) 11/14/2024 11/15/2023, 04/04/2023, 04/05/2022, Additional history exists Fasting Glucose for Diabetes Screening 11/14/2024 11/15/2023, 04/04/2023, 04/04/2023, Additional history exists Potassium Level 11/14/2024 11/15/2023, 08/2022, 04/05/2022, Additional history exists Sodium Level 11/14/2024 11/15/2023, 08/2022, 04/05/2022, Additional history exists DTaP,Tdap,and Td Vaccines (3 - Td or Tdap) 09/29/2031 09/28/2021, 05/18/2011, 10/27/2010, Additional history exists Hepatitis A Vaccines Completed 04/10/2012, 05/28/20 11 Colonoscopy Discontinued 05/18/2013 Colonoscopy Discontinued 05/18/2013 Pneumococcal vaccine (65+ years) Completed 12/03/19, 10/26/2010 Hepatitis C Screening Completed 12/24/2015 FIT Discontinued 12/31/2015 Cologuard Discontinued 03/14/2021, 03/10/2021 Colorectal Cancer Screening Discontinued Colorectal Cancer Surveillance Discontinued Mammogram Discontinued 04/07/2023, 09/2021, 03/02/2021, Additional history exists CT Colonography Discontinued CT Colonography Discontinued Procedures Procedure Name Priority Date/Time Associated Diagnosis [...] wall motionabnormalities, calculated 2-D monoplane volumetric ejection [id number]%. 5. Abnormal left ventricular geometry with concentric [...] Jorge Dolan M.D. LAB BLOOD ADD-O N [facility] [address] [place] [address], [facility] in [place] [address] [place] [address] * BI Breast Screening Bilateral with Tomosynthesis [...] or more) Yes 04/04/2023 9:43 AM CDT OWAT Blood (Blood, Venous) 04/04/2023 9:43 AM CDT 04/04/2023 9:43 AM CDT Shreyas Abreu M.D. LAB BLOOD ADD-ON [facility] [address] [place] [address], [facility] in [place] [address], [place] [address] * Cologuard-Sent Out Lab (03/10/2021 1:00 PM [...] screened with both Cologuard and colonoscopy. (Ron Meeks al, N Engl J Med 2014;370(14):7921-5398) The normal value (reference range) for this assay is negative. COLOGUARD RE-SCREENING RECOMMENDATION: Periodic colorectal cancer screening is an important part of preventive healthcare for asymptomatic individuals at average risk for colorectal cancer. ??Following a negative Cologuard result, the [employer] and U.S. Multi-Society Task Force screening guidelines recommend a Cologuard re-screening interval of 3 years. References: [employer] Guideline for Colorectal Cancer Screening: https://www.cancer.org/cancer/faula-olmbix-khbyrt/detection- diagnosis-staging/acs-recommendations.html.; Giacomo DK, Cuca HAGAN, Carter KhouryK, Colorectal Cancer Screening: Recommendations for Physicians and Patients from the U.S. Multi-Society Task Force on Colorectal Cancer Screening , Am J Gastroenterology 2017; 112:5218-5660. TEST DESCRIPTION: Composite algorithmic analysis of stool [...] screened with both Cologuard and colonoscopy. (Ron Esteban, N Engl J Med 2014;370(14):1609-2702.) Cologuard may produce a false negative or false positive result (no colorectal cancer or precancerous polyp present at colonoscopy follow up). A negative Cologuard test result does not guarantee the absence of CRC or advanced adenoma (pre-cancer). The current Cologuard screening interval is every 3 years. ([place] [employer] and U.S. Multi-Society Task Force). Cologuard performance data in a 10,000 patient pivotal study using colonoscopy as the reference method can be accessed at the following location: www.[employer]/results. Additional description of the Cologuard test process, warnings and precautions can be found at www.cologuard.com. Stool (Stool) 03/10/2021 1:0 0 PM CDT 03/11/2021 1:15 PM CDT Shreyas Abreu M.D. LAB BODY FLUIDS A ND STOOLS ORDERABLES Performing Organization Address City/[facility] Co de Phone Number [employer] [address] [place] [address] [employer] [address] [place] [address], [address] [place] [address] * HCV Ab w/Reflex to HCV PCR, S (medicare) (12/24/2015 1:46 PM CDT) HXHCV Ab [facility] Negative Negative POWERCHART Comment: Vdjvoc-ud-ajibyc ratio is <1.00. Test Performed by: [facility] [place] [address] Finance Accounting Internship: Man Ferrell II, M.D., Ph.D. Blood 12/24/2015 1:46 PM CDT Shreyas Abreu M.D. LAB MICROBIOLOGY - BLOOD ORDERABLES POWERCHART from Last 3 Months or Most Recently Relevant to Health Maintenance Care Teams Channel Sales Manager Relationship Specialty Start Date End Date Shreyas Abreu M.D. [address] [place] [phone] PCP - General 12/16/16
--- OUTSIDE RECORDS SUMMARY | 2024-02-29 01:20 | XMS_ITS | Data Portability ---
Author Organization [facility] Address [address] [place] [address] [address] [place] [address] Assessment Encounter Date Assessment Date Assessment LastModified by Organization Details LastModified Time 08/20/2019 08/20/2019 NOT SEEN [email or web address] Not available 07:44:28 Plan of Treatment Reminders Order Date Submit Date Provider Last Modified By Organization Details Last Modified Time Details Appointments None recorded. Lab None recorded. Referral None recorded. Procedures None recorded. Surgeries None recorded. Imaging None recorded. Medication Orders Bactrim DS 800 mg-160 mg tablet 2021 022 [facility], [id number], [place], [address], 11:17:02 clindamycin HCl 300 mg capsule 2021 022 [facility], [id number], [place], [address], 11:16:57 Patient TargetsNo targets recorded. Patient Instructions Encounter Date Encounter Id Patient Instructions Last Modified By Organization Details Last Modified Time 09/28/2021 [id number] animal bites: care instructions [email or web address] Not available 09/28/2021 11:16:45 PLAN 1. Patient to follow up with PCP or RTC in 2-3 days for wound re-evaluation. 2. Patient instructed [facility] open M-F 8am-8pm and Sat/Sun 8am-5pm, [facility] is open everyday from 8 AM to 5PM. Patient should return for any question(s)/vandana rn(s)/evaluation( s) 3. Patient directed to CALL 911/and/or GO IMMEDIATELY to the emergency dept if symptoms worsen 4. Discussed natural and expected course of this diagnosis and need to alert PCP if symptoms do not follow expected course, or if any worse. *Discussed with patient to keep wound clean/dry. *Change dressing daily. *If develop redness, warmth, swelling, thick drainage, or odor from wound, fever 100.5f, chills, SOB or CP to F/U with PCP or seek medical attention immediately. [email or web address] Not available 09/28/2021 19:08:24 Reason for Referral None Reported. Problems Name Problem SNOMED Code Status Onset Date Resolution Date Notes Provider Name and Address Organization Details Recorded Time Anxiety 47367778 Active 2021 [facility] 2 11:04:44 Hyperlipidemia 21462622 Active 2009 [facility] 2 11:04:54 Acid reflux 255970093 Active 2019 [facility] 2 11:05:04 Malignant tumor of breast 892198881 Active 2001 [facility] 2 11:06:21 Problem Notes None recorded. Procedures Surgical History Date Name Laterality Status Provider Name and Address Organization Details Recorded Time 2 lumpectomy of left breast completed [facility] 09/28/2021 11:06:02 6 Tubal Ligation completed [facility] 09/28/2021 11:06:57 4 tonsilectomy/ad enoids completed [facility] 09/28/2021 11:06:46 Imaging Results None recorded. Procedure Notes None recorded. Medical Equipment None Reported. Allergies Allergen ID Allergen Name Allergen Category Reaction Reaction Severity Criticality Documentation Date Start Date Code Code System Note Provider Name and Address Organization Details Recorded Time Medicinal product containin g penicilli n and acting as antibacte rial agent (product) medicatio n hives Not available high 09/28/2021 46394 05 SNOMED FREDDY RM [facility] 2 11:02:46 Medications Name Sig Start Date Stop Date Status Note LastModified by Organization Details LastModified Time clindamycin HCl 300 mg capsule TAKE 1 CAPSULE BY MOUTH TWICE DAILY active Not Available Not Available No t Available sulfamethoxa zole 800 mg-trimethop rim 160 mg tablet TAKE 1 TABLET BY MOUTH EVERY 12 HOURS active Not Available Not Available No t Available alprazolam 0.25 mg tablet one tab po once a day prn active Not Available Not Available No t Available doxycycline monohydrate 100 mg capsule 09/28 completed Not Available Not Available Not Available pantoprazole 40 mg tablet,delay ed release Take 1 tablet every day by oral route. active Not Available Not Available No t Available erythromycin 5 mg/gram (0.5 %) eye ointment active Not Available Not Available Not Available lisinopril 5 mg tablet 09/28 completed Not Available Not Available Not Available lisinopril 2.5 mg tablet 09/28 completed Not Available Not Available Not Available doxycycline hyclate 100 mg tablet 09/28 completed Not Available Not Available Not Available rosuvastatin 5 mg tablet one tab po once a day active Not Available Not Available No t Available rosuvastatin 10 mg tablet TAKE 1 TABLET BY MOUTH ONCE DAILY active Not Available Not Available No t Available hydrochlorot hiazide 12.5 mg tablet TAKE 1 TABLET BY MOUTH ONCE DAILY active Not Available Not Available No t Available Vitals Date Recorded Body height Heart rate Respiratory rate Body temperature Body mass index (BMI) Body weight Oxygen saturation Oxygen saturation in Arterial blood by Pulse oximetry Systolic blood pressure Diastolic blood pressure Provider Name and Address Organization Details Last Updated DateTime 2 170.18 cm 75 /min 17 /min 97.5 [degF] 22.7 kg/m2 39880.8 9 g 97 % 97 % 134 mm[Hg] 75 mm[Hg] FREDDY RM [facility] 2 11:02:25 Date Recorded Respiratory rate Body temperature Provid er Name and Address Organization Details Last Updated DateTime 08/20/2019 18 /min 98.9 [degF] ASH BROUSSARD [facility] 08/20/2019 13:43:14 Social History Question Answer Notes LastModified by Organizat ion Details LastModified Time Tobacco Smoking Status Never Smoker FREDDY RM [facility], [facility] 09/28/2021 11:05:50 What Is Your Level Of Alcohol Consumption? Occasional [email or web address] Information not available 09/28/2021 Sex: Unknown Functional Status None recorded. Mental Status None recorded. Family History Relationship Description Onset Age of this Age Resolved Age Notes Mother Old-age 94 Father Aneurysm 74 Medical History Condition Response Allergies, Hayfever, Polen, Tree, Cats, Dogs, Dust or Mite N Bone & Joint Disorder, Arthritis, RHEUMA TOID N Ear Nose and Throat (ENT), Nasal Polyps, Chronic Sinusitis N Cancer, Breast Y Thyroid Disorder, Hyperthyroidism N Blood Diseases, Leukemia N Heart Disease, Acute Myocardial Infarcti on N Gastrointestinal Problem, Peptic Ulcer D isease(Stomach Ulcer) N Infectious Disease, MRSA exposure N Psychiatric Disorder, Depression, Anxiet y Y Defects or Inherited Disease N DIAGNOSTIC STUDY: Mammogram N Vision Problem, Others N Muscle Disorder, Fibromyalgia N Blood Diseases, Hemophilia N Bone & Joint Disorder, Arthritis, OSTEOA RTHRITIS N Cancer, Skin, Melanoma, Squamous Cell, B nancy Cell N Surgical Complications, Anesthesia N Hospitalizations or Surgery (most recent ) N Lung Disease, COPD , Emphysema N DIAGNOSTIC STUDY: EKG N Obesity N Skin Disease, Eczema, Psoriasis N Heart Disease, Hypertension N DIAGNOSTIC STUDY: Ultrasound N DIAGNOSTIC STUDY: Echo-cardiogram N Neurological Disorder, Headaches, Migrai trish N Psychiatric Disorder, ADD/ADHD N Gastrointestinal Problem, Constipation N Psychiatric Disorder, Schizophrenia N Kidney Disease, Hematuria(Blood in urine ) N Gastrointestinal Problem, Hepatitis, Sari vated Liver Enzymes, Liver Disease N Heart Disease, Congestive Heart Disease N Epilepsy/Seizure Disorder N Anemia, Iron Deficiency N DIAGNOSTIC STUDY: Cystoscopy N DIAGNOSTIC STUDY: Bone Scan N Bladder, Prostate or Kidney Problems N Cancer, Lymphoma N Kidney Disease, Kidney Stones N DIAGNOSTIC STUDY: MRI (Magnetic Resonanc e Imaging) N Blood Diseases, Hemochromatosis N DIAGNOSTIC STUDY: Sleep Study N Infectious Disease, History of Tuberculo sis N DIAGNOSTIC STUDY: CT Scan N Anemia, Sickle Cell Trait N Lung Disease, Asthma N Bone & Joint Disorder, Gout N Heart Disease, Atrial Fibrillation/Atria l Flutter N DIAGNOSTIC STUDY: Endoscopy N Neurological Disorder, Stroke/TIA N Heart Disease, Heart Murmur N DIAGNOSTIC STUDY: Stress Test N Gastrointestinal Problem, Irritable Martine l Syndrome N Ear Nose and Throat (ENT), Meniere's dis ease N Cancer, Prostate, Bladder N Cancer, Cervical or Ovarian N DIAGNOSTIC STUDY: PET Scan N Lung Disease, Pulmonary Embolism N Heart Disease, High Cholesterol Y DIAGNOSTIC STUDY: Electromyography (EMG) N Infectious Disease, AIDS, HIV, Hep-C, He p-B N Gastrointestinal Problem, Difficulty Swa llowing, Esophageal Stricture N Diabetes N DIAGNOSTIC STUDY: Immunocap (Allergy Maday ting) N DIAGNOSTIC STUDY: Colonoscopy N Ear Nose and Throat (ENT), Hard of Heari ng N DIAGNOSTIC STUDY: XRs N Blood Diseases, Thrombophilia N Vision Problem, Glaucoma N Heart Disease, Coronary Artery Disease N Abuse/Domestic Violence N Psychiatric Disorder, Bipolar Disease N Gastrointestinal Problem, Gall Bladder, GERD-Reflux Y DIAGNOSTIC STUDY: Bone Density N Genitourinary Problems, BPH, incontinenc e, frequency N Vision Problem, Macular Degeneration N Gastrointestinal Problem, Diverticulosis /Diverticulitis/Polyps N Eating Disorder, Anorexia, Bulimia N Thyroid Disorder, Hypothyroidism N Psychiatric Disorder, Obscessive Compuls inga Disorder N Bone & Joint Disorder, Osteopenia/Osteop orosis N Anemia, Sickle Cell N Vascular disorder, Varicosities N Surgical Complications, Blood Transfusio n N Infectious Disease, Chicken Pox, Shingle s, Herpes Zoster N Gynecological HistoryNo gynecological history recorded. Obstetrics History GPAL:G 0 P 0 0 0 0 Past Encounters Encounter ID Performer Location Encounter Start Date Encounter Closed Date Diagnosis/Indication Diagnosis SNOMED-CT Code [id number] KASEY ZEPEDAKEVON [address] [place] [address] 08/20/2019 13:39:52 08/21/2019 07:44:37 [id number] BRIDGETT DANIELLE NP [facility] [address] [place] [address] 09/28/2021 11:00:28 09/28/2021 12:01:08 Dog bite of hand 807458627 Health Concerns Section Related Observation LastModified by Organization Detai ls LastModified Time None Recorded Concern Status LastModified by Organization Details LastModified Time None Recorded Advance Directives Directive None Recorded Payers Encounter Date Sequence Insurance Name Policy Number Policy [place] Covered Member ID [place] Member ID Guarantor Name 08/20/2019 1 [place] Seema Marlow [id number] Seema Marlow 08/20/2019 1 [place] [id number] Seema Marlow [id number] Seema Marlow 09/28/2021 1 [place]MEDICARE REPLACEMENT PPO) Seema Marlow [id number] Seema Marlow Notes Date Note Type Note Provider Name and Address Organization Details Recorded Time 09/28/2021 text/html HPI Notes: Onset-09/28/21 Location-right index finger tip Duration-constant Characteristics-s welling, redness, and puncture wound, pain Aggravating factors-nothing makes it worse Relieving factors-nothing makes it better Treatment-washed it with soap and water and covered it with bandaid Tetanus NOT up-to-date 76 Y/O female pt c/o right index finger tip dog bite x -09/28/21 she states her dog bit her denies drainage or odor from affected site, fever, chills, body aches, paresthesia of hand, fingers, or and limb, [place] [address], [place], [address], [facility] 09/28/2021 19:10:02 OBGyn Episode No OBEpisode recorded.
[2024-02-29] MEDS: 0.9 % SODIUM CHLORIDE 500 ML 500 ML IV (01:24)
[2024-02-29] MEDS: dilTIAZem 5 MG/ML inj 10 MG IVP (01:27)
[2024-02-29 01:32] LABS: NT Pro B Type NatriureticPept* 158 pg/mL
[2024-02-29] MEDS: METOPROLOL TARTRATE 25 MG TABLET 12.5 MG PO (02:07)
[2024-02-29] MEDS: ASPIRIN 81 MG TAB.CHEW 162 MG PO (02:07)
== END 2024-02-29 02:31 | disposition home or self-care (01) ==
PROVIDERS: Emergency Provider Family Medicine
DX: I48.92 Unspecified atrial flutter (principal)
CPT/HCPCS: 36415; 80048; 83735; 83880; 84484; 85025; 85610; 93005; 96365; 96375; 99284; A9270; J3475; J7030

== ENCOUNTER 2025-05-25 11:27 | Outpatient (CLI) | payer MEDICARE, BC, SELFPAY | END 2025-05-25 11:28 | disposition home or self-care (01) | LOC: NFLDREF 05-30 17:30 | PROVIDERS: Visit Provider Physician Assistant Surgical | DX: R35.1 Nocturia (principal) | CPT/HCPCS: 87086 ==